=== PATIENT | female | born 1990 | race Two or more races ===

== ENCOUNTER 2021-08-11 09:28 | Day surgery (SDC) | payer OTHER ==
[~2021-08-11 09:28] MED LIST: MEGESTROL ACETA40 MG PO
== END 2021-08-11 19:45 | disposition home or self-care (01) ==
LOC: CIR.AMB 09:28
PROVIDERS: ATTEND Specialist
DX: N85.02 Endometrial intraepithelial neoplasia [EIN] (principal); Z88.6 Allergy status to analgesic agent; E66.9 Obesity, unspecified; Z20.822 Contact with and (suspected) exposure to COVID-19

== ENCOUNTER 2022-01-18 07:58 | Day surgery (SDC) | payer OTHER ==
[~2022-01-18] VITALS: Ht 165.1 cm; Wt 92.5 kg
[~2022-01-18 07:58] MED LIST changes: +ADIPEX-P37.5 MG
== END 2022-01-18 16:10 | disposition home or self-care (01) ==
LOC: CIR.AMB 07:58
PROVIDERS: ATTEND Specialist
DX: N85.02 Endometrial intraepithelial neoplasia [EIN] (principal); Z88.6 Allergy status to analgesic agent